=== PATIENT | male | born 2000 | race Hispanic/Latino ===

== ENCOUNTER 2023-11-20 01:47 | Emergency (ER) | payer SELFPAY ==
[2023-11-20] MEDS ORDERED: Ketorolac Tromethamine 30 MG (1 mL) VIAL ONE (05:26)
== END 2023-11-20 05:43 | disposition home or self-care (01) ==
LOC: ERS 01:47
DX: S39.012A Strain of muscle, fascia and tendon of lower back, initial encounter (principal); X58.XXXA Exposure to other specified factors, initial encounter
CPT/HCPCS: 96372; 99283; J1885

== ENCOUNTER 2023-12-03 01:50 | Emergency (ER) | payer SELFPAY ==
[2023-12-03] MEDS ORDERED: Lidocaine 1% PF 5 ML VIAL ONE (03:13)
[2023-12-03] MEDS ORDERED: Azithromycin 250 MG TAB ONE (03:14)
[2023-12-03] MEDS ORDERED: cefTRIAXone (ROCEPHIN) 500 MG VIAL ONE (03:14)
[2023-12-03 07:52] LABS: Bacteria/HPF None Seen HPF (None Seen); Bilirubin Negative (Negative); Blood, Urine Negative (Negative); Clarity Clear (Clear); Glucose, Urine (Dipstick) Normal (Negative); Ketone, Urine Negative (Negative); Leukocyte 25 Leu/uL (Negative); Nitrite Negative (Negative); Protein, Urine (Dipstick) 20 mg/dL (Neg-Trace); RBC/HPF 0-3 HPF (0-3); Specific Gravity, Urine 1.029 (1.002-1.036); Squamous Epithelial 0-3 HPF (0-3); WBC/HPF 21-50 HPF (0-3); pH, Urine 6.5 (5.0-9.0)
[2023-12-04 06:21] LABS: Chlam.trachomatis by PCR,Urine DETECTED (NotDetected); GC N.gonorrhoeae PCR,UrineVOID Not Detected (NotDetected)
== END 2023-12-03 04:01 | disposition home or self-care (01) ==
LOC: ERS 01:50
DX: N34.2 Other urethritis (principal); Z55.6 Problems related to health literacy
CPT/HCPCS: 81001; 87491; 87591; 96372; 99283; J0696

== ENCOUNTER 2024-01-03 19:01 | Emergency (ER) | payer SELFPAY ==
[2024-01-03] MEDS ORDERED: Ibuprofen 800 MG TAB ONE (19:27)
[2024-01-03] MEDS ORDERED: Ondansetron ODT 4 MG TAB ONE (19:27)
[2024-01-03] MEDS ORDERED: Dexamethasone 4 MG TAB ONE (19:27)
== END 2024-01-03 20:36 | disposition home or self-care (01) ==
LOC: ERS 19:01
DX: B34.9 Viral infection, unspecified (principal)
CPT/HCPCS: 87428; 99283; J8540; Q0162